=== PATIENT | male | born 2000 | race Caucasian/White ===

== ENCOUNTER → 2023-03-26 16:57 | Outpatient (CLI) | payer OTHER, SELFPAY ==
--- NOTE | 2023-03-26 17:04 | DI.RAD.S_ITS ---
PROCEDURE: XR CHEST 2V INDICATIONS: Cough TECHNIQUE: 2 views of the chest were acquired. COMPARISON: None. FINDINGS: Surgical changes and devices: None. Lungs and pleura: Lungs are clear. No pleural effusions or pneumothorax. Mediastinum: Mediastinal contours are normal. Heart size is normal. Bones and chest wall: No suspicious bony abnormalities. Soft tissues appear unremarkable. IMPRESSION: No acute cardiopulmonary abnormality is seen. Dictated by: Cabrera Chen M.D. on 03/26/2023 at 17:46 Approved by: Cabrera Chen M.D. on 03/26/2023 at 17:46
== END ==
LOC: DI 17:03
PROVIDERS: Visit Provider Physician Assistant
DX: R05.9 Cough, unspecified (principal)
CPT/HCPCS: 71046